=== PATIENT | female | born 1950 | race Caucasian/White ===

== ENCOUNTER 2022-11-28 11:15 | Outpatient (RCR) | payer MEDICARE, BC, SELFPAY | END 2023-03-10 09:18 | disposition home or self-care (01) | PROVIDERS: PCP Internal Medicine; Visit Provider Student in an Organized Health Care Education/Training Program | DX: M25.511 Pain in right shoulder (principal); M25.512 Pain in left shoulder; G89.29 Other chronic pain; M19.011 Primary osteoarthritis, right shoulder; M19.012 Primary osteoarthritis, left shoulder; M25.611 Stiffness of right shoulder, not elsewhere classified; Z51.89 Encounter for other specified aftercare | CPT/HCPCS: 97110; 97140; 97162; 97535 ==

== ENCOUNTER 2023-03-27 07:31 | Day surgery (SDC) | payer MEDICARE, BC, SELFPAY ==
[2023-03-27 07:49] VITALS: BMI 27.8
[2023-03-27 07:55] VITALS: BP 129/83; PULSE 78; RESP 16; TEMP 36.7; O2SAT 96
[2023-03-27] MEDS: SODIUM CHLORIDE 0.9 % (FLUSH) 10 ML SYRINGE IVF (08:00)
[2023-03-27] MEDS: LACTATED RINGERS 1000 ML 1,000 ML 100 ML IV (08:00)
--- NOTE | 2023-03-27 08:45 | CRLHL7_ITS ---
For Patients: As a result of the Cures Act, medical imaging exams and procedure reports are released immediately into your electronic medical record. You may view this report before your referring provider. If you have questions, please contact your health care provider. Indication: 1st MPJ Fusion, Metatarsal Head Resection Technique: Three fluoroscopic images of the right foot. Fluoroscopic time 20.0 seconds. IMPRESSION: Fluoroscopic guidance for fusion across the 1st MTP joint. Dictated by Dariel Denise MD @ 03/27/2023 11:01:53 AM (Electronically Signed)
[2023-03-27] MEDS: BUPIVACAINE 0.5% 30 ML 40 ML INJECTION (09:10)
[2023-03-27] MEDS: CEFAZOLIN 2 GM INJ IVP (09:11)
--- NOTE | 2023-03-27 09:21 | SUR.OPER ---
PATIENT QUESTIONS ANSWERED SATISFACTORILY PREOPERATIVELY.? PATIENT BROUGHT TO OR #1 PER CART.? Patient positioned supine on OR #1 bed.? The perioperative?team supported arms bilaterally on arm boards.? Final approval of positioning by surgeon.?
--- NOTE | 2023-03-27 11:39 | W.ANESCHARGE ---
Anesthesia Charges Start Date/Time Anesthesia Start Date: 03/27/23 Anesthesia Start Time: 09:02 Stop Date/Time Anesthesia Stop Date: 03/27/23 Anesthesia Stop Time: 11:39
--- NOTE | 2023-03-27 11:42 | P.PCN_ITS ---
Procedure Note Date Seen: 03/27/23 Date of procedure: 03/27/23 Will [facility] bill your pro fee for this procedure?: No Procedure: preoperative diagnosis: 1. Hallux valgus with bunion right 2. hammertoe deformity digits 3, 4 and 5 right 3. metatarsalgia 2nd and 3rd metatarsals right 4. tailor's bunion right foot postoperative diagnosis: 1. Hallux valgus with bunion right 2. hammertoe deformity digits 3, 4 and 5 right 3. metatarsalgia 2nd and 3rd metatarsals right 4. tailor's bunion right foot Procedure: 1. 1St MPJ fusion right foot 2. hammertoe correction 3rd toe right 3. ostectomy 2nd metatarsal right 4. ostectomy 3rd metatarsal right 5. ostectomy 5th metatarsal right 6. hammertoe correction 4th toe right 7. hammertoe correction 5th toe right hemostasis: Ankle tourniquet 250 mm Hg materials: 0.054 K-wires x2, Arthrex 1st MPJ fusion plate x1, 3.0 mm cortical locking screws x5, 3.0 mm cortical nonlocking screw x1, 3.0 mm headless cannulated screw x1. Complications: None apparent indication for surgery: Patient was seen in clinic for ongoing right foot pain. She has elected surgical correction. I discussed the procedure, recovery, expectations and potential complications, these include but are not limited to: Poor wound healing, infection, under correction, over correction, hardware irritation or failure, nerve injury, flail toe, nonunion, delayed union, malunion, potential need for future surgery, deep venous thrombosis, pulmonary embolism possible . She understands risks written consent was obtained. Site was marked. Procedure in detail: Patient brought the operating room placed supine position on operating table she was placed under MAC anesthesia. 40 mL 0.5% Marcaine plain was injected into the right foot. She was prepped and draped in sterile fashion. Standard time-out protocol followed. Right foot was exsanguinated the tourniquet inflated. Dorsal linear incisions made over the 1st metatarsophalangeal joint. The incision was carried down through skin subcutaneous tissues. Linear capsular incision was made the capsular tissue reflected away from the head of the 1st metatarsal and base of proximal phalanx. guide pin was placed 1st metatarsal head. 18 mm Reamer was used to remove the cartilage and subchondral bone. Guide pin was removed and placed in the base of the proximal phalanx and the corresponding 18 mm Reamer was used to remove the cartilage and subchondral bone. area was thoroughly irrigated normal sterile saline. Corresponding fusion surfaces were fenestrated with a K-wire. Weightbearing was simulated with a metal lid and the hallux placed in the optimal position and temporarily fixated with a K-wire. C-arm confirmed excellent position. Guide pin was placed distal medial to proximal lateral and a 3.0 mm cannulated headless screw was placed. Excellent compression across the fusion site. Dorsal 6 hole 1st MPJ fusion plate was then applied. Three 3.0 mm cortical locking screws were placed distal and two 3.0 cortical locking screws were placed proximal with an additional nonlocking screw proximal. Medial 1st MPJ fusion site was remodeled with a rotary bur. C-arm confirmed excellent position. After thorough irrigation capsular tissue repaired with 3-0 Vicryl, subcutaneous tissues repaired with 4-0 Monocryl, skin closed with Prolene. Linear incisions made over the dorsal lateral aspect of the 5th metatarsal head. Incision was carried down through skin subcutaneous tissues. Linear capsular incision was made and tissues reflected away from the 5th metatarsal head. Sagittal saw was used to resect the enlarged dorsal lateral prominence. The area was then remodeled with a rotary bur. Wound was thoroughly irrigated normal sterile saline. The extensor digitorum longus tendon was tenotomized. Capsular tissues repaired with 4-0 Vicryl. skin was repaired with 4-0 Prolene. Linear incision made over the PIPJ of the 3rd toe extending proximal and gently curving medially at the metatarsophalangeal joint. Incision was carefully deepened through subcutaneous tissues with tenotomy scissors. The extensor tendons of the 3rd digit were identified and transected. The 3rd me tatarsophalangeal joint capsule was opened with a transverse incision. McGlamry periosteal elevator placed in the plantar adhesions released. Using a sagittal saw partial 3rd metatarsal head resection performed. Rotary bur was used to plane the plantar aspect of the metatarsal. Blunt dissection was then carried medially to the 2nd metatarsal head. Periosteal incision was made. Sagittal saw was used to perform a partial 2nd metatarsal head resection. Rubor used to plane the plantar aspect of the metatarsal. The PIPJ joint capsule of the 3rd toe was exposed. Transverse incision was made through the extensor tendon and capsule. Medial and lateral collateral ligaments released. head of the proximal phalanx was resected with an oscillating saw and the base of the middle phalanx resected with an oscillating saw. 0.054 smooth K-wire was introduced into the base of the middle phalanx driven out the tip of the toe. Fusion site was held together and the pin retrograde the driven into the proximal phalanx. C-arm confirmed position. the K-wire was bent cut and capped. Redundant extensor tendon was excised and repaired with 4-0 Vicryl. Subcutaneous tissues reapproximated 4-0 Monocryl and skin closed with 4-0 Prolene. Linear incisions made over the 4th proximal phalangeal joint. Transverse incision was made through the extensor tendon and joint capsule. The medial and lateral collateral ligaments were released. The extensor tendons were released with through the 5th metatarsal incision. The 4th MPJ capsule was released through the current incision. head of the proximal phalanx was resected with an oscillating saw and the base of the middle phalanx resected with an oscillating saw. 0.054 smooth K-wire was introduced into the base of the middle phalanx dri kane out the tip of the toe. Fusion site was held together and the pin retrograde the driven into the proximal phalanx. C-arm confirmed position. the K-wire was bent cut and capped. Redundant extensor tendon was excised and repaired with 4-0 Vicryl. Subcutaneous tissues reapproximated 4-0 Monocryl and skin closed with 4-0 Prolene. linear incisions made over the 5th PIPJ. Transverse incision was made through the extensor tendon and joint capsule. The medial and lateral collateral ligaments released. Head of the proximal phalanx was resected using oscillating saw. The extensor tendon was repaired with 4-0 Vicryl. Skin was repaired with 4-0 Prolene. Prior to all closures wounds with through irrigated with normal sterile saline. Sterile dressing was applied. Tourniquet was released and normal capillary fill time returned all digits. She was transferred from OR to PACU vital signs stable vascular status intact. She was placed in a short cam boot. She is weight-bearing to the heel for transfers only. She will follow up in clinic in 3 days. She is given both written and verbal postop instructions. She is given oxycodone for pain. Anesthesia: MAC and local Surgeon: Lucien Henao DPM FACFAS Estimated blood loss (mL): 5 Condition: stable Disposition: same day
[2023-03-27 11:45] VITALS: BP 142/77; PULSE 74; RESP 16; TEMP 36.5; O2SAT 95
[2023-03-27 12:00] VITALS: BP 133/76; PULSE 69; RESP 16; O2SAT 94
--- NOTE | 2023-03-27 12:31 | SUR.PHASEII ---
Up to bathroom with walker and SBA, tolerated without difficutly. Tolerated toast, yogurt and coffee. Sitting in chair with right foot elevated.Cam boot on.
== END 2023-03-27 13:35 | disposition home or self-care (01) ==
PROVIDERS: PCP Family Medicine; Visit Provider Podiatrist
PROC: (CPT 28740; principal; 2023-03-27 08:45)
PROC: (CPT 28285; 2023-03-27 08:45)
DX: M20.11 Hallux valgus (acquired), right foot (principal); M21.611 Bunion of right foot; M20.41 Other hammer toe(s) (acquired), right foot; M77.41 Metatarsalgia, right foot
CPT/HCPCS: 28750; 28285 ×3; 28114; 01480; 73620; 76000; C1713; J0665; J0690; J1100; J1885; J2250; J2371; J2405; J2704; J3010; J7120

== ENCOUNTER 2023-12-21 08:58 | Outpatient (CLI) | payer MEDICARE, BC, SELFPAY ==
--- OUTSIDE RECORDS SUMMARY | 2023-12-21 09:02 | XMS_ITS | Clinical Summary ---
Author Organization [employer] [facility] Address [place], [place] [address] Care Team Providers Care Cotton Washer Name Role Phone JacksonsavitaMere moya Nancy GONZALEZ Primary Care Provider [phone] Allergies No known active allergies Medications Medication Sig Dispensed Refills Start Date End Date Status acetaminophen (TYLENOL EXTRA STRENGTH) 500 mg tablet Max acetaminophen dose: 4000mg in 24 hrs. 0 02/06/20 14 Active omeprazole (PRILOSEC) 10 mg capsule Take 1 capsule by mouth once daily before a meal. 0 01/08/20 19 Active ferrous sulfate, 65 mg elemental, tablet Take 1 Tablet (325 mg) by mouth once daily with a meal. 0 08/26/19 22 Active calcium carbonate-vitamin D3, 500 mg-400 units, (OSCAL 500 + D) tablet Take 1 Tablet by mouth 2 times daily before meals. 0 08/26/19 22 Active durable medical equipment (DME)Indications:Elevate d blood pressure reading without diagnosis of hypertension Blood pressure cuff and machine. 1 Each 02/15/20 22 Active famotidine (PEPCID) 20 mg tablet Take 2 Tablets (40 mg) by mouth once daily. 07/18/19 24 Active amLODIPine (NORVASC) 5 mg tabletIndications:HTN (hypertension) Take 1 Tablet (5 mg) by mouth once daily. 90 Tablet 3 12/12/19 24 Active atorvastatin (LIPITOR) 10 mg tabletIndications:Pure hypercholesterolemia Take 1 Tablet (10 mg) by mouth at bedtime. 90 Tablet 3 12/12/19 24 Active hydroCHLOROthiazide 12.5 mg tabletIndications:HTN (hypertension) Take 1 Tablet (12.5 mg) by mouth once daily. 90 Tablet 3 12/12/19 24 Active losartan (COZAAR) 100 mg tabletIndications:HTN (hypertension) Take 1 Tablet (100 mg) by mouth once daily. 90 Tablet 3 12/12/19 24 Active traZODone (DESYREL) 50 mg tabletIndications:Insomn ia, unspecified type Take 1.5 Tablets (75 mg) by mouth at bedtime. 135 Tablet 3 12/12/19 24 Active carbidopa-levodopa, 25-100 mg, (SINEMET 25-100) 25-100 mg tabletIndications:Restle ss legs syndrome (RLS) Take 1 Tablet by mouth at bedtime. 90 Tablet 3 12/12/19 24 Active medication order composerIndications:Atro phic vaginitis Estriol vaginal cream 0.3%. 1 gram vaginally 3x per week. Disp. 30 grams 90 g 2 12/12/19 24 Active traZODone (DESYREL) 50 mg tabletIndications:Insomn ia, unspecified type Take 1.5 Tablets (75 mg) by mouth at bedtime. 10 Tablet 12/19/19 24 Active hydroCHLOROthiazide 12.5 mg tabletIndications:HTN (hypertension) Take 1 Tablet (12.5 mg) by mouth once daily. 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 Length of need 3 months. Foot surgery scheduled 03/27/23. 1 Each 03/21/20 23 024 Discontinu ed(*Med complete/R egimen complete/L evel of care change) docusate (COLACE) 100 mg capsuleIndications:Const ipation due to pain medication Take 1 Capsule (100 mg) by mouth two times daily. 20 Capsule 03/22/20 23 024 Discontinu ed(*Patien t states no longer taking) durable medical equipment (DME)Indications:S/P foot surgery, right [id number] Squared toed Post op shoe, XSM 1 Each 04/12/20 23 024 Discontinu ed(*Med complete/R egimen complete/L evel of care change) amLODIPine (NORVASC) 5 mg tabletIndications:HTN (hypertension) Take 1 Tablet (5 mg) by mouth once daily. 90 Tablet 1 06/21/19 24 024 Discontinu ed(Reorder (E-cancel not sent)) traZODone (DESYREL) 50 mg tabletIndications:Insomn ia, unspecified type TAKE 1 AND 1/2 TABLETS AT BEDTIME 135 Tablet 1 07/19/19 24 024 Discontinu ed(Reorder (E-cancel not sent)) hydroCHLOROthiazide 12.5 mg tabletIndications:HTN (hypertension) TAKE 1 TABLET ONE TIME DAILY 90 Tablet 1 08/27/19 24 024 Discontinu ed(Reorder (E-cancel not sent)) medication order composerIndications:Atro phic vaginitis Estriol vaginal cream 0.3%. 1 gram vaginally 2x per week. Disp. 30 grams 90 g 08/29/19 24 024 Discontinu ed(Reorder (E-cancel not sent)) atorvastatin (LIPITOR) 10 mg tabletIndications:Pure hypercholesterolemia TAKE 1 TABLET AT BEDTIME 90 Tablet 2 09/18/19 24 024 Discontinu ed(Reorder (E-cancel not sent)) losartan (COZAAR) 100 mg tabletIndications:HTN (hypertension) TAKE 1 TABLET (100 MG) BY MOUTH ONCE DAILY. 90 Tablet 10/09/19 24 024 Discontinu ed(Reorder (E-cancel not sent)) carbidopa-levodopa, 25-100 mg, (SINEMET 25-100) 25-100 mg tabletIndications:Restle ss legs syndrome (RLS) TAKE 1 TABLET AT BEDTIME 90 Tablet 10/09/19 24 024 Discontinu ed(Reorder (E-cancel not sent)) estradioL (ESTRACE) 0.01% (0.1 mg/g) vaginal creamIndications:Vaginal atrophy Insert 1 g into the vagina every Monday, Monday and Monday. 42.5 g 3 12/13/19 24 024 Discontinu ed(*Medica tion adjustment ) traZODone (DESYREL) 50 mg tabletIndications:Insomn ia, unspecified type Take 1.5 Tablets (75 mg) by mouth at bedtime for 7 days. 7 Tablet 12/19/19 24 024 Discontinu ed(*Medica tion adjustment ) Active Problems Problem Noted Date Diagnosed Date HTN (hypertension) 09/19/2022 Squamous cell carcinoma, face 09/19/2022 EDMUNDO 02/19/2019 AHI-9, severe on her back 02/25/20 19 Neuroma of foot 02/06/2015 Dyspareunia 01/18/2011 Osteoarthritis of medial comp both knees 010 Osteoarthritis of multiple joints 05/30/2008 Osteopenia 03/31/2008 Overview: DEXA 2018 osteopenia Insomnia, unspecified 03/31/2008 Restless legs syndrome (RLS) Esophageal reflux Resolved Problems Problem Noted Date Diagnosed Date Resolved Date Screening for lipid disorders 03/10/2016 09/19/2022 Screen for colon cancer 07/10/2012 0505/2022 Overview: Colonoscopy 06/2012 normal repeat in 10 years Cataracts, bilateral 04/24/2012 012 intermediate (current) use of anticoagulants 04/12/2010 10/07/2011 Overview: INR Goal Range: 1.5 - 2.5 Depressive disorder, not elsewhere classified 03/31/2008 Encounters Date Type Department Care Team Description 12/15/2023 Refill [facility] [address] [place] [address] Mere Roa, DO Refill Request (Trazodone) 12/12/2023 12:55 PM CDT Office Visit [facility] [place] [address] Mere Roa, DO Medicare ANNUAL (subsequent) Visit (73 year old female); Throat Problem (food is going down wrong, choking/) 12/12/2023 Telephone [facility] [address] [facility] [place] [address] Mere Roa Nancy, DO Medication Management 12/12/2023 Travel 10/19/2023 2:10 PM CDT Office Visit [facility] [address] [place] [address] Olinda Hemphill MD Derm Problem 10/19/2023 Travel 10/07/2023 Refill [facility] [address] [place] [address] Sir Roai Nancy, DO Refill Request (Losartan, Carbidopa-levodopa (25-100 Mg)) from Last 3 Months Immunizations Name Administration Dates Next Due AMB Influenza, IIV3 (Age >=3 years)(Flu Clinic Only) 03/12/2013,02/18/2012,04/08/2011,2008 COVID-19 Vaccine Spikevax (M oderna 50mcg/0.5mL) 12YO+ [id number] Formula PF 05/26/2023 COVID-19 vaccine (Moderna 100mcg/0.5mL) PF, MDV 09/24/2021,04/08/2021,07/23/2020 COVID-19 vaccine (Pfizer-Bio NTech 30mcg/0.3mL) 12YO+ BIVALENT PF, MDV 03/07/2022 HepA-HepB (Twinrix) 11/17/2009,04/21/2009,2003 Influenza A (H1N1), Inactiva lizz (Age >=3 Years) 05/12/2009 Influenza, High-dose Inactivated 02/15/2016 Influenza, High-dose Quadriv alent Inactivated 06/18/2021 Influenza, IIV3 (Age 6-35 mos) 04/08/2011 Influenza, IIV3 (Age >=3 years) 03/12/20 13,02/18/2012,03/30/2010,2008,03/31/2008,03/16/2007,04/01/2006,1 06/07/2004,03/19/2003 Influenza, IIV4 02/06/2015,02/05/2014 Influenza, Inactivated AIIV4 (Age 65+ Years) Preserv Free 05/08/2023,02/14/2022,02/18/2020 Influenza, Inactivated IIV3 (Age 65+ Years) Preserv Free 04/11/2019,02/12/2018,04/07/2017 Pneumococcal Poly,23-Valent (Pneumovax) 02/12/2018 Pneumococcal conj 13-Valent (Prevnar 13) 04/19/2016 Td (Age >=7 Years) 12/11/2020,02/08/2006, 004 Td, Preservative Free (age > = 7 Years) 02/08/2006 Tdap 10/14/2010 Zoster (Shingrix-RZV, recombinant) 03/04/2019,,10/18/2018 Zoster (Zostavax-ZVL, live) 02/22/2012 Family History Medical History Relation Name Comments Heart Disease Father Heart attack Father Heart attack Maternal Grandfather Stroke Maternal Grandmother Cancer-breast No Family History Cancer-colon No Family History Relation Name Status Comments Father Maternal Grandfather Maternal Grandmother Social History Tobacco Use Types Packs/Day Years Used Date Smoking Tobacco: Never Smokeless Tobacco: Never Tobacco Cessation:Counseling Given: Yes Alcohol Use Standard Drinks/Week Comments No 0 (1 standard drink = 0.6 oz pur e alcohol) very occasionally PHQ-2 Answer Date Recorded PHQ-2 TOTAL SCORE 2 12/12/2023 Social Connections Answer Date Recorded Frequency of Communication with Friends and Fami ly 0 03/21/2023 Financial Resource Strain Answer Date R ecorded Difficulty of Paying Living Expenses 3 03/21/2023 Difficulty of Paying Living Expenses Not on file 03/21/2023 Food Insecurity Answer Date Recorded Worried About Running Out of Food in the Last Ye ar 1 03/21/2023 Transportation Needs Answer Date Record ed Lack of Transportation (Medical) 1 03/21/2023 Housing Stability Answer Date Recorded Unable to Pay for Housing in the Last Year 1 03/21/2023 Sex and Gender Information Value Date Recorded Sex Assigned at Not on file Gender Identity Not on file Sexual Orientation Not on file Obstetrics History Para Term AB IAB SAB Ectopic Multiple Livin g Live Births 1 1 1 0 Date Outcome GA Total Labor Labor/2nd/3rd Weight Sex Type Anes PTL Nancy A1 A5 Name Clin IAB Last Filed Vital Signs Vital Sign Reading Time Taken Comments Blood Pressure 140/82 12/12/2023 2:04 PM CDT Pulse 80 12/12/2023 1:16 PM CDT Temperature 36.8 ??C (98.2 ??F) 07/12/2023 1 0:38 AM ALMOND HULLER Respiratory Rate 16 01/20/2022 2:49 PM CDT Oxygen Saturation 98% 12/12/2023 1:16 PM CDT Inhaled Oxygen Concentration - - Weight 64.8 kg (142 lb 12.8 oz) 12/12/2023 1:16 PM CDT Height 154.9 cm (5' 0.98) 12/12/2023 1:16 PM CD T Body Mass Index 27 12/12/2023 1:16 PM CDT Plan of Treatment Health Maintenance Due Date Last Done Comments Colonoscopy through age 75 07/10/202207/10, 07/10/2012, 08/30/2011 (Completed outside of [facility]) COVID-19 vaccine series ( season) 2023 05/26/2023, 03/07/2022, 09/24/2021, Additional history exists Influenza for age 65+ 01/21/2024 05/08/2023 , 02/14/2022, 06/18/2021, Additional history exists Mammogram for age 45-75 03/15/2024 03/15/20, 02/11/2022, 11/23/2020, Additional history exists BMI (ht and wt on same day) for age 18+ 12/11/2024 12/12/2023, 03/21/2023, 06/08/2022, Additional history exists Depression screening for age 12+ 12/11/2024 12/12/2023, 12/12/2023, 02/14/2022, Additional history exists Medicare Wellness for age 65+ 12/12/2024, 02/14/2022, 08/19/2020, Additional history exists Lipids for age 45-75 12/11/2028 12/12/2023, 10/07/2022, 04/01/2022, Additional history exists Tetanus booster 12/11/2030 12/11/2020, 05/10/2010, 02/08/2006, Additional history exists Tdap Completed 10/14/2010 Hepatitis C screening for ag e 18-79 Completed 02/05/2014 Pneumococcal series for age 65+ Completed 8, 04/19/2016 Zoster (shingles) series for age 50+ Completed 03/04/2019, 12/03/2018, 10/18/2018, Additional history exists DEXA/DXA scan for age 65+ Completed 2018, 04/18/2016, 05/21/2012, Additional history exists Procedures Procedure Name Priority Date/Time Associated Diagnosis Comments LIPID PANEL W REFLEX MEASURED LDL Routine 12/12/2023 2:26 PM CDT Pure hypercholesterolemia BASIC METABOLIC PANEL Routine 12/12/2023 2:26 PM CDT HTN (hypertension) XR MAMMO BILAT SCREENING Routine 03/15/2023 10:28 AM CDT Encounter for screening mammogram for malignant neoplasm of breast XR DXA BONE DENSITY 2 SITES AXIAL Routine 04/23/2019 4:45 PM ALMOND HULLER Disorder of bone, unspecified ANTI HCV Routine 02/05/2014 2:18 PM CDT Need for hepatitis C screening test from Last 3 Months or Most Recently Relevant to Health Maintenance Results * (ABNORMAL) LIPID PANEL W REFLEX MEASURED LDL (12/12/2023 2:26 PM CDT) CHOLESTEROL,TOTAL 179 100 - 199 mg/dL 12/13/2023 1:13 AM CDT [facility] [employer] Comment: Cholesterol, Total Reference Ranges Desirable <200 mg/dL Borderline 200-239 mg/dL High >=240 mg/dL TRIGLYCERIDES 154(H) <150 mg/dL 12/13/2023 1:13 AM CDT [facility] [employer] [facility] HDL CHOLESTEROL 56 >40 mg/dL 4 1:13 AM CDT [facility] NON-HDL CHOLESTEROL 123 <145 mg/dl 12/13/2023 1:13 AM CDT [facility] [employer] CHOL/HDL RATIO 3.20 <4.50 12/13/2023 1:13 AM CDT [facility] LDL CHOLESTEROL 92 <=130 mg/dL 12/13/2023 1:13 AM T [facility] VLDL CHOLESTEROL 31(H) <=30 mg/dL 12/13/2023 1:13 AM CDT [facility] PROVIDER ORDERED STATUS RANDOM 12/13/2023 1:13 AM T [facility] Blood BLOOD SPECIMEN / Unknown Venipuncture / Unknown 12/12/2023 2:26 PM CDT 12/12/2023 2:26 PM CDT Mere Roa DO [facility] [address] [place] [address], * (ABNORMAL) BASIC METABOLIC PANEL (12/12/2023 2:26 PM CDT) SODIUM 138 136 - 145 mmol/L 12/13/2023 1:13 AM T [facility] POTASSIUM 4.0 3.5 - 5.1 mmol/L 12/13/2023 1:13 AM T [facility] CHLORIDE 102 98 - 107 mmol/L 12/13/2023 1:13 AM T [facility] CO2,TOTAL 26 22 - 29 mmol/L 12/13/2023 1:13 AM T [facility] ANION GAP 10 5 - 18 12/13/2023 1:13 AM T [facility] GLUCOSE 106(H) 70 - 99 mg/dL 12/13/2023 1:13 AM T [facility] CALCIUM 9.8 8.8 - 10.2 mg/dL 12/13/2023 1:13 AM T [facility] BUN 26(H) 8 - 23 mg/dL 12/13/2023 1:13 AM T [facility] CREATININE 0.82 0.50 - 0.90 mg/dL 12/13/2023 1:13 AM CDT [facility] BUN/CREAT RATIO 32(H) 10 - 20 1:13 AM CDT [facility] eGFR 76(L) >90 mL/min/1.7 3m2 12/13/2023 1:13 AM CDT [facility] Comment:As of 2021, eG FR is calculated by the CKD-EPI creatinine equation without race adjustment. ??eGFR can be influenced by muscle mass, exercise, and diet. ??The reported eGFR is an estimation only and is only applicable if the renal function is stable. Blood BLOOD SPECIMEN / Unknown Venipuncture / Unknown 12/12/2023 2:26 PM CDT 12/12/2023 2:26 PM CDT Mere Roa DO [facility] [address] [place] [address], * XR MAMMO BILAT SCREENING (03/15/2023 10:28 AM CDT) Anatomical Region Laterality Modality BREASTS, Breast Left, Breast Right Bilateral Mammography Impressions 03/15/2023 3:05 PM CDT ??There is no radiographic evidence for malignancy. ??Recommend annual mammograms. MAMMOGRAM ASSESSMENT: ??ACR 1 Negative PATIENTS: You will also receive a letter with your examination results in an easy to read format. ??If you have questions about your results, please contact your referring provider. Narrative 03/15/2023 3:05 PM CDT For Patients: As a result of the 21st Century Cures Act, medical imaging exams and procedure reports are released immediately into your electronic medical record. You may view this report before your referring provider. If you have questions, please contact your health care provider. XR MAMMO BILAT SCREENING [[id number]] CLINICAL HISTORY: ??This is an asymptomatic 72 y.o. patient. INDICATION FOR EXAM: Mammogram Screening. TECHNIQUE: CC & MLO views were obtained. ??This study was evaluated with the assistance of Computer-Aided Detection. COMPARISON FILM: Yes 02/11/22 [facility] 11/23/20 [facility] FINDINGS: ??The breasts are almost entirely fatty. There are no dominant masses, suspicious micro calcifications or areas of architectural distortion. Mere Nancy Shaqra DO MAMMO * (ABNORMAL) XR DXA BONE DENSITY 2 SITES AXIAL (04/23/2019 4:45 PM ALMOND HULLER) Anatomical Region Laterality Modality Spine, HIPS, HIPL, HIPR Other Narrative 04/26/2019 1:28 PM ALMOND HULLER Please see scanned document for results of this study. Sissy Eldridge MD DEXA * ANTI HCV [[id number]] (02/05/2014 2:18 PM CDT) HEPATITIS C ANTIBODY Non-Reacti ve Non-Reacti ve 02/06/2014 12:28 AM CDT [facility] Blood specimen (specimen) BLOOD SPECIMEN / Unknown Venipuncture / Unknown 02/05/2014 2:18 PM CDT 02/05/2014 2:18 PM CDT Narrative [facility] - 02/06/2014 12:28 AM CDT Antibodies to HCV not detected; does not exclude the possibility of exposure to HCV. Christelle Bianchi SEND OUTS [facility] [address] [place] [address], [place] from Last 3 Months or Most Recently Relevant to Health Maintenance Advance Directives * Full Code (Latest Code Status on File) Date Activated Date Inactivated Comments 12/14/2020 6:34 AM 12/14/2020 11:47 AM Question Answer Comments Code Status Discussion: Discussed Care Teams Cotton Washer Relationship Specialty Start Date End Date [place] [address] [address] PCP - General Family Practice 02/14/22
--- NOTE | 2023-12-21 09:15 | CRLHL7_ITS ---
For Patients: As a result of the Century Cures Act, medical imaging exams and procedure reports are released immediately into your electronic medical record. You may view this report before your referring provider. If you have questions, please contact your health care provider. INDICATION: Dysphagia TECHNIQUE: Modified barium swallow. Fluoroscopic time 51 seconds. COMPARISON: None FINDINGS/IMPRESSION: No laryngeal penetration or aspiration. No obstruction to the flow of barium. Normal epiglottis movement. No significant findings. Dictated by Dariel Denise MD @ 12/22/2023 6:34:36 AM (Electronically Signed)
== END 2023-12-21 08:59 | disposition home or self-care (01) ==
LOC: RAD 08:58
PROVIDERS: PCP Family Medicine; Visit Provider Family Medicine
DX: R13.10 Dysphagia, unspecified (principal)
CPT/HCPCS: 74230; 92611

== ENCOUNTER 2024-09-23 17:00 | Outpatient (RCR) | payer MEDICARE, BC, SELFPAY | END 2024-12-09 11:14 | disposition home or self-care (01) | PROVIDERS: PCP Family Medicine; Visit Provider Student in an Organized Health Care Education/Training Program | DX: M54.59 Other low back pain (principal); M40.294 Other kyphosis, thoracic region; R53.1 Weakness; Z96.653 Presence of artificial knee joint, bilateral; Z51.89 Encounter for other specified aftercare | CPT/HCPCS: 97110; 97162 ==